=== PATIENT | female | born 1955 | race Caucasian/White ===

== ENCOUNTER 2019-12-29 09:10 | Emergency (ER) | payer MEDICAID ==
[~2019-12-29] VITALS: Ht 147.3 cm; Wt 54.4 kg
--- NOTE | 2019-12-29 09:52 | NUR ---
Dr Sanchez at the bedside for MSE.
[2019-12-29 10:33] VITALS: BP 103/60
== END 2019-12-29 10:37 | disposition home or self-care (01) ==
LOC: ER 09:10
DX: J11.1 Influenza due to unidentified influenza virus with other respiratory manifestations (principal); Z88.0 Allergy status to penicillin
CPT/HCPCS: 71046; A4663